=== PATIENT | male | born 2000 | race Caucasian/White ===

== ENCOUNTER 2018-07-18 13:52 | Emergency (ER) | payer OTHER ==
[~2018-07-18] VITALS: Ht 175.3 cm; Wt 70.3 kg
--- NOTE | 2018-07-18 14:20 | NUR ---
PT BIBS AXOX3,C/O THROAT PAIN/DISCOMFORT, - BLEEDING, -DISCHARGE- PAIN UPON SWALLOW,-N/V, - NOLASCO
[2018-07-18] MEDS ORDERED: ACETAMINOPHEN ES 500 MG TABLET PO ONE (14:30)
[2018-07-18] MEDS ORDERED: KETOROLAC TROMETHAMINE INJ 30 MG/ML VIAL IV ONE (14:30)
[2018-07-18] MEDS ORDERED: DEXAMETHASONE SOD PHOSPHATE 4 MG/ML VIAL IV ONE (14:30)
[2018-07-18] MEDS ORDERED: IV NS 0.9% 1,000 ML BAG IV ONE (14:30)
[2018-07-18 14:34] LABS: BASOPHILS # (AUTO) 0.1 /CMM (0.0-0.2); BASOPHILS % (AUTO) 0.5 % (0.0-2.0); EOSINOPHILS % (AUTO) 0.1 % (0.0-6.0); HEMATOCRIT 43 % (39-51); HEMOGLOBIN 14.6 g/dL (13.5-17.5); LYMPHOCYTES # (AUTO) 2.8 /CMM (0.8-4.8); LYMPHOCYTES % (AUTO) 15.9 % (20.0-44.0); MEAN CORPUSCULAR HGB CONC 34 g/dl (31.0-36.0); MEAN CORPUSCULAR VOLUME 92 fL (80-96); MONOCYTES # (AUTO) 1.7 /CMM (0.1-1.30); MONOCYTES % (AUTO) 9.6 % (2.0-12.0); NEUTROPHILS # (AUTO) 12.8 /CMM (1.8-8.9); NEUTROPHILS % (AUTO) 73.9 % (43.0-81.0); PLATELET COUNT (AUTO) 266 /CMM (150-450); RED BLOOD CELL COUNT(AUTO) 4.65 MIL/uL (4.5-6.0); WHITE BLOOD COUNT (AUTO) 17.4 K/uL (4.3-11.0)
[2018-07-18] MEDS ORDERED: KETOROLAC TROMETHAMINE INJ 30 MG/ML VIAL ONE (14:37)
[2018-07-18] MEDS ORDERED: DEXAMETHASONE SOD PHOSPHATE 4 MG/ML VIAL ONE (14:37)
[2018-07-18] MEDS ORDERED: ACETAMINOPHEN ES 500 MG TABLET ONE (14:38)
[2018-07-18 14:47] LABS: CALCIUM, SERUM 9.4 mg/dL (8.5-10.1); CREATININE 1.1 mg/dL (0.6-1.3)
[2018-07-18 14:54] LABS: ALBUMIN 3.8 g/dL (3.4-5.0); BILIRUBIN,DIRECT 0.1 mg/dL (0.0-0.2); BILIRUBIN,TOTAL 0.5 mg/dL (0.2-1.0); TOTAL PROTEIN, SERUM 8.5 g/dL (6.4-8.2)
--- NOTE | 2018-07-18 16:05 | NUR ---
Dr. Gambino at bedside for I&D of peritonsillar abscess
[2018-07-18] MEDS ORDERED: CEFTRIAXONE 1GM BAG (ER ONLY) 50 ML IV ONE (16:22)
[2018-07-18] MEDS ORDERED: CEFTRIAXONE 1GM BAG (ER ONLY) 1 GM/50 ML PIGGYBACK IV ONE (16:30)
--- NOTE | 2018-07-18 16:30 | NUR ---
ADDENDUM: Intravenous End Time Documentation: Rocephin 1 gram IVPB: start time: 1630 PM ; end time: 1645 PM IV site: RAC #22 Port # 1
[2018-07-18 16:47] VITALS: BP 120/78
== END 2018-07-18 16:51 | disposition home or self-care (01) ==
LOC: ER 13:55
DX: J36 Peritonsillar abscess (principal); Z88.0 Allergy status to penicillin
CPT/HCPCS: 36415; 80048; 80076; 85025; 87070; 96374; 96375; 99283; A4606; J0696; J1100; J1885; J7030; Z7610

== ENCOUNTER 2018-08-08 23:12 | Emergency (ER) | payer OTHER ==
[~2018-08-08] VITALS: Ht 175.3 cm; Wt 70.3 kg
--- NOTE | 2018-08-08 23:20 | NUR ---
PT S/P PERITONSILLAR ABSCESS 1MO AGO, L TONSIL HURTING/SWOLLEN AGAIN. PT AOX4. PT REPORTS 10/10 PAIN WITH DIFFICULTY SWALLOWING. PT IN BED 1 ON MONITOR WITH FAMILY AT BEDSIDE. WILL CONTINUE TO MONITOR.
[2018-08-09] MEDS ORDERED: KETOROLAC TROMETHAMINE INJ 30 MG/ML VIAL IV ONE
[2018-08-09] MEDS ORDERED: IV NS 0.9% 1,000 ML BAG IV ONE
[2018-08-09] MEDS ORDERED: KETOROLAC TROMETHAMINE INJ 30 MG/ML VIAL ONE (00:11)
[2018-08-09 00:13] LABS: BASOPHILS # (AUTO) 0.1 /CMM (0.0-0.2); BASOPHILS % (AUTO) 0.5 % (0.0-2.0); HEMATOCRIT 42 % (39-51); HEMOGLOBIN 14.6 g/dL (13.5-17.5); LYMPHOCYTES # (AUTO) 1.8 /CMM (0.8-4.8); LYMPHOCYTES % (AUTO) 12.8 % (20.0-44.0); MEAN CORPUSCULAR HGB CONC 35 g/dl (31.0-36.0); MEAN CORPUSCULAR VOLUME 92 fL (80-96); MONOCYTES # (AUTO) 1.4 /CMM (0.1-1.30); MONOCYTES % (AUTO) 9.9 % (2.0-12.0); NEUTROPHILS # (AUTO) 10.7 /CMM (1.8-8.9); NEUTROPHILS % (AUTO) 76.8 % (43.0-81.0); PLATELET COUNT (AUTO) 182 /CMM (150-450); RED BLOOD CELL COUNT(AUTO) 4.62 MIL/uL (4.5-6.0); WHITE BLOOD COUNT (AUTO) 13.9 K/uL (4.3-11.0)
--- NOTE | 2018-08-09 00:18 | NUR ---
PT TAKEN TO RADIOLOGY VIA [facility]
[2018-08-09] MEDS ORDERED: IV NS 0.9% 250 ML IV ONE (00:31)
[2018-08-09] MEDS ORDERED: IOHEXOL-300 100 ML VIAL IV ONE (00:31)
[2018-08-09 00:44] LABS: CALCIUM, SERUM 9.6 mg/dL (8.5-10.1); POTASSIUM 3.7 mmol/L (3.5-5.1)
[2018-08-09 00:45] LABS: CREATININE 1.1 mg/dL (0.6-1.3)
[2018-08-09] MEDS ORDERED: CLINDAMYCIN 600 MG in IV D5W 100 ML IV ONE (01:00)
[2018-08-09] MEDS ORDERED: DEXAMETHASONE SOD PHOSPHATE 10 MG/ML VIAL IV ONE (01:00)
--- NOTE | 2018-08-09 01:00 | NUR ---
Ramesh olivo in ED - 08/16/18 at 0452 by SELINA ADDENDUM: Intravenous End Time Documentation: Intravenous clindamycin (900 mg) in 200 mL; start time 0 100 a.m.; stop time 0 200 a.m.; right antecubital (RAC) Guage #20; port #1
--- NOTE | 2018-08-09 01:00 | NUR ---
ADDENDUM: Intravenous End Time Documentation: Intravenous clindamycin (600 mg) in 200 mL; start time 0 100 a.m.; stop time 0 200 a.m.; right antecubital (RAC) Guage #20; port #1
[2018-08-09 01:07] VITALS: BP 126/84
[2018-08-09] MEDS ORDERED: DEXAMETHASONE SOD PHOSPHATE 10 MG/ML VIAL ONE (01:21)
[2018-08-09] MEDS ORDERED: CLINDAMYCIN 900 MG/6 ML VIAL ONE (01:22)
--- NOTE | 2018-08-09 02:07 | NUR ---
IV removed. Catheter intact and site benign. Pressure and 4x4 applied to site. No bleeding noted.Patient discharged to home in stable condition. Written and verbal after care instructions given. Patient verbalizes understanding of instruction. PT AMBULATORY WITH STEADY GAIT.
== END 2018-08-09 02:12 | disposition home or self-care (01) ==
LOC: ER 23:13
DX: J03.90 Acute tonsillitis, unspecified (principal); Z88.0 Allergy status to penicillin
CPT/HCPCS: 36415; 70491-TC; 80048-TC; 85025-TC; J1100; J1885; J3490; J7030; J7050; J7060; Q9967